=== PATIENT | female | born 1975 | race Caucasian/White ===

== ENCOUNTER 2020-08-27 10:56 | Emergency (ER) | payer BC ==
[~2020-08-27] VITALS: Ht 165.1 cm; Wt 59.1 kg
[2020-08-27] MEDS ORDERED: ketorolac trometh. 30mg/ml inj. IV ONE (11:05)
[2020-08-27] MEDS ORDERED: morphine 4 MG/ML inj SYRINge IV ONE ×3 (11:05→16:35)
[2020-08-27] MEDS ORDERED: diazepam inj 5 MG/ML inj. IV ONE (11:05)
[2020-08-27] MEDS ORDERED: normal saline 1000ML IV soln IVB ONE (11:35)
--- NOTE | 2020-08-27 13:45 | NUR ---
Pt taken to MRI
[2020-08-27] MEDS ORDERED: dexamethasone sod phosphate 10mg/ml inj IV STA (16:51)
[2020-08-27] MEDS ORDERED: OXYC-145 PO (16:54)
[2020-08-27] MEDS ORDERED: ORPH100T2 PO (16:54)
[2020-08-27] MEDS ORDERED: KETO10TA2 PO (16:54)
[2020-08-27 17:35] VITALS: BP 107/59
== END 2020-08-27 17:40 | disposition home or self-care (01) ==
LOC: ER 10:57
DX: M62.830 Muscle spasm of back (principal); G89.29 Other chronic pain; F32.9 Major depressive disorder, single episode, unspecified; Z98.890 Other specified postprocedural states; Z88.5 Allergy status to narcotic agent; Z79.899 Other long term (current) drug therapy
CPT/HCPCS: 72148; 96361; 96374; 96375; 96376; 99284; J1100; J1885; J2270; J3360; J7030